=== PATIENT | male | born 1980 | race Caucasian/White ===

== ENCOUNTER 2018-06-13 22:24 | Emergency (ER) | payer SELFPAY ==
[~2018-06-13] VITALS: Ht 177.8 cm; Wt 83.9 kg
[2018-06-13 22:28] VITALS: BP 164/101
--- NOTE | 2018-06-13 22:28 | NUR ---
NOTIFIED NURSE VAIBHAV THAT PT STATED HE FELT LIKE HE IS HAVING A HEART ATTACK
[2018-06-13] MEDS ORDERED: ASPIRIN 81 MG CHEW (CHILDREN'S ASA) PO ONE (22:45)
--- NOTE | 2018-06-13 22:50 | NUR ---
pt given urinal informed urine specimen needed.
[2018-06-13 22:53] LABS: BASOPHILS % (AUTO) 1 % (0-10); EOSINOPHILS # (AUTO) 0.2 10^3/uL (0.0-0.3); EOSINOPHILS % (AUTO) 2 % (0-10); HEMATOCRIT 49 % (40-54); HEMOGLOBIN 17.6 G/DL (13.3-17.7); LYMPHOCYTES # (AUTO) 1.8 X 10^3 (1.0-4.0); LYMPHOCYTES % (AUTO) 20 % (12-44); MEAN CORPUSCULAR HEMOGLOBIN 31 PG (25-34); MEAN CORPUSCULAR HGB CONC 36 G/DL (32-36); MEAN CORPUSCULAR VOLUME 87 FL (80-99); MEAN PLATELET VOLUME 9.3 FL (7.4-10.4); MONOCYTES % (AUTO) 12 % (0-12); NEUTROPHILS # (AUTO) 5.9 X 10^3 (1.8-7.8); NEUTROPHILS % (AUTO) 66 % (42-75); PLATELET COUNT 335 10^3/uL (130-400); RED CELL DISTRIBUTION WIDTH 12.3 % (10.0-14.5); WHITE BLOOD COUNT 8.9 10^3/uL (4.3-11.0)
[2018-06-13 22:58] LABS: PROTHROMBIN TIME PATIENT 13.4 SEC (12.2-14.7)
[2018-06-13] MEDS ORDERED: KETOROLAC 30 MG/ML VIAL IVP ONE (23:00)
[2018-06-13] MEDS ORDERED: LIDOCAINE 2% VISCOUS 15 ML UDC PO ONE (23:00)
[2018-06-13] MEDS ORDERED: ANTACID SUSP 30 ML UDC (MYLANTA) PO ONE (23:00)
--- NOTE | 2018-06-13 23:03 | ED Chest Pain ---
General Chief Complaint: Chest Wall/Rib Pain Stated Complaint: CP Nursing Triage Note: left chest pain radiating to left shoulder/arm/abdomen x45 min. Nursing Sepsis Screen: No Definite Risk Source: patient History of Present Illness Date Seen by Provider: Jun 13, 2018 Time Seen by Provider: 22:40 Initial Comments PT ARRIVES VIA POV FROM HOME C/O LEFT CHEST PAIN, RADIATES TO LEFT SHOULDER, DOWN LEFT ARM, AND LEFT LATERAL NECK PAIN BEGAN 1 HOUR AGO WHILE DRINKING BEER STATES PAIN IS GETTING BETTER--PAIN WAS 8/10, NOW 5/10 NOTHING WORSENS OR IMPROVES PAIN LEFT ARM FEELS NUMB AND TINGLY STATES IT IS HARD TO TAKE A DEEP BREATH WHEN PAIN IS BAD + NAUSEA, NO VOMITING NO SWEATS NO SWELLING IN LEGS/ FEET OR PAIN IN CALVES. NO RECENT TRAVEL OR PROLONGED SITTING, ETC. NO SYNCOPE NO PALPITATIONS NO FEVER, COUGH/URI SYMPTOMS OR RECENT ILLNESS NO HISTORY OF SIMILAR NO INJURY OR UNUSUAL ACTIVITY PT IS RIGHT HANDED PCP:NONE Allergies and Home Medications Allergies Coded Allergies: No Known Drug Allergies (Unverified , 06/13/18) Home Medications No Active Prescriptions or Reported Meds Patient Home Medication List Home Medication List Reviewed: Yes Review of Systems Review of Systems Constitutional: no symptoms reported EENTM: No Symptoms Reported Respiratory: See HPI Cardiovascular: See HPI Gastrointestinal: See HPI; Denies Abdominal Pain; Nausea; Denies Vomiting Genitourinary: No Symptoms Reported Musculoskeletal: see HPI Skin: no symptoms reported Psychiatric/Neurological: See HPI Endocrine: No Symptoms Reported Hematologic/Lymphatic: No Symptoms Reported Past Svvrbef-Wblkoc-Pbdnpe Hx Patient Social History Alcohol Use: Regular Use (6 PACK A COUPLE OF TIMES / WEEK) Number of Drinks Today: 3 Alcohol Beverage of Choice: Beer Recreational Drug Use: Yes (THC) Drug of Choice: cannibus Smoking Status: Current Everyday Smoker (1 1/2 PPD) Type Used: Cigarettes (1 1/2 PPD) 2nd Hand Smoke Exposure: Yes Recent Foreign Travel: No Contact w/Someone Who Travel: No Recent Infectious Disease Expo: No Recent Hopitalizations: No Immunizations Up To Date Tetanus Booster (TDap): Unknown Seasonal Allergies Seasonal Allergies: No Past Medical History Surgeries: No Respiratory: No Cardiac: Yes ([facility] [facility]N[employer]--DX 2018 IN [place]--PT WAS PLACED ON BETABLOCKER , BUT DROPPED HIS HEART RATE, SO PT SELF DC'D. HAS NOT FOLLOWED UP WITH ANYONE SINCE. ) Neurological: No Genitourinary: No Gastrointestinal: No Musculoskeletal: Yes (LEFT HUMERUS FX CHILD--NO SURGERY) Endocrine: No HEENT: No Cancer: No Psychosocial: No Integumentary: No Blood Disorders: No Physical Exam Vital Signs Vital Signs - First Documented 06/13/18 22:28 Temp 97.3 Pulse 99 Resp 18 B/P (MAP) 164/101 (122) Pulse Ox 100 O2 Delivery Room Air Capillary Refill : Less Than 3 Seconds Height, Weight, BMI Height: 5'10.00" Weight: 185lbs. oz. 83.762431gc; BMI Method:Stated General Appearance: No Apparent Distress, WD/WN, Other (FLAT AFFECT. DOES NOT APPEAR TO BE IN ANY DISCOMFORT OR DISTRESS. REEKS OF CIGARETTES) Neck: Full Range of Motion, Normal Inspection, Non Tender, Supple; No Carotid Bruit, No JVD Respiratory: Chest Non Tender, Normal Breath Sounds, No Accessory Muscle Use Cardiovascular: Regular Rate, Rhythm, No Edema, No JVD, No Murmur, Normal Peripheral Pulses Gastrointestinal: Normal Bowel Sounds, No Organomegaly, No Pulsatile Mass, Non Tender, Soft Extremity: Normal Capillary Refill, Normal Inspection, Normal Range of Motion, Non Tender, No Calf Tenderness, No Pedal Edema Neurologic/Psychiatric: Alert, Oriented x3, No Motor/Sensory Deficits, Normal Mood/Affect, equity research analyst II-XII Norm as Tested Skin: Normal Color, Warm/Dry; No Rash Progress/Results/Core Measures Results/Orders Lab Results Laboratory Tests Test 06/13/18 20:35 Range/Units White Blood Count 8.9 4.3-11.0 10^3/uL Red Blood Count 5.64 4.35-5.85 10^6/uL Hemoglobin 17.6 13.3-17.7 G/DL Hematocrit 49 40-54 % Mean Corpuscular Volume 87 80-99 FL Mean Corpuscular Hemoglobin 31 25-34 PG Mean Corpuscular Hemoglobin Concent 36 32-36 G/DL Red Cell Distribution Width 12.3 10.0-14.5 % Platelet Count 335 130-400 10^3/uL Mean Platelet Volume 9.3 7.4-10.4 FL Neutrophils (%) (Auto) 66 42-75 % Lymphocytes (%) (Auto) 20 12-44 % Monocytes (%) (Auto) 12 0-12 % Eosinophils (%) (Auto) 2 0-10 % Basophils (%) (Auto) 1 0-10 % Neutrophils # (Auto) 5.9 1.8-7.8 X 10^3 Lymphocytes # (Auto) 1.8 1.0-4.0 X 10^3 Monocytes # (Auto) 1.0 0.0-1.0 X 10^3 Eosinophils # (Auto) 0.2 0.0-0.3 10^3/uL Basophils # (Auto) 0.0 0.0-0.1 10^3/uL Prothrombin Time 13.4 12.2-14.7 SEC INR Comment 1.0 0.8-1.4 Activated Partial Thromboplast Time 29 24-35 SEC Sodium Level 139 135-145 MMOL/L Potassium Level 3.6 3.6-5.0 MMOL/L Chloride Level 104 98-107 MMOL/L Carbon Dioxide Level 21 21-32 MMOL/L Anion Gap 14 5-14 MMOL/L Blood Urea Nitrogen 12 7-18 MG/DL Creatinine 1.02 0.60-1.30 MG/DL Estimat Glomerular Filtration Rate > 60 BUN/Creatinine Ratio 12 Glucose Level 98 70-105 MG/DL Calcium Level 10.0 8.5-10.1 MG/DL Corrected Calcium 8.5-10.1 MG/DL Magnesium Level 2.5 H 1.8-2.4 MG/DL Total Bilirubin 0.6 0.1-1.0 MG/DL Aspartate Amino Transf (AST/SGOT) 18 5-34 U/L Alanine Aminotransferase (ALT/SGPT) 22 0-55 U/L Alkaline Phosphatase 77 40-136 U/L Total Creatine Kinase 70 30-200 U/L Creatine Kinase MB 1.0 <6.6 NG/ML Myoglobin 21.5 10.0-92.0 NG/ML Troponin I < 0.028 <0.028 NG/ML B-Type Natriuretic Peptide < 10.0 <100.0 PG/ML Total Protein 7.6 6.4-8.2 GM/DL Albumin 5.0 H 3.2-4.5 GM/DL Amylase Level 37 25-125 U/L Lipase 32 8-78 U/L Serum Alcohol 10 <10 MG/DL My Orders Orders - DONITA FISHMAN DO Ua Culture If Indicated (06/13/18 22:41) Cbc With Automated Diff (06/13/18 22:45) Magnesium (06/13/18 22:45) Chest 1 View, Ap/Pa Only (06/13/18 22:45) Ekg Tracing (06/13/18 22:45) Cardiac Profile 1 (06/13/18 22:45) Comprehensive Metabolic Panel (06/13/18 22:45) Myoglobin Serum (06/13/18 22:45) Protime With Inr (06/13/18:45) Partial Thromboplastin Time (06/13/18 22:45) O2 (06/13/18 22:45) Monitor-Rhythm Ecg Trace Only (06/13/18 22:45) Aspirin Chewable Tablet (Baby Aspirin Ch (06/13/18 22:45) Saline Lock/Iv-Start (06/13/18 22:45) Creatine Kinase (06/13/18 22:45) Creatine Kinase Mb (06/13/18 22:45) Lipase (06/13/18 22:45) Amylase (06/13/18 22:45) BNP (06/13/18 22:45) Alcohol (06/13/18 22:45) Drug Screen Stat (Urine) (06/13/18 22:45) Ketorolac Injection (Toradol Injection) (06/13/18 23:00) Antacid Suspension (Mylanta Suspension (06/13/18 23:00) Lidocaine 2% Viscous 15 Ml (Xylocaine Vi (06/13/18 23:00) Ct Angio Chest W (06/13/18 23:37) Pantoprazole Injection (Protonix Injecti (06/13/18 23:45) Medications Given in ED Current Medications Medications Dose Ordered Sig/Massimo Route Start Time Stop Time Status Last Admin Dose Admin Al Hydrox/Mg Hydrox/Simethicone 30 ml ONCE ONCE PO 06/13/18 23:00 06/13/18 23:01 DC 06/13/18 23:04 30 ML Aspirin 324 mg ONCE ONCE PO 06/13/18 22:45 06/13/18 22:47 DC 06/13/18 22:52 324 MG Ketorolac Tromethamine 30 mg ONCE ONCE IVP 06/13/18 23:00 06/13/18 23:01 DC 06/13/18 23:04 30 MG Lidocaine HCl 15 ml ONCE ONCE PO 06/13/18 23:00 06/13/18 23:01 DC 06/13/18 23:04 15 ML Pantoprazole 40 mg ONCE ONCE IV 06/13/18 23:45 06/13/18 23:46 DC 06/13/18 23:45 40 MG Vital Signs/I&O 06/13/18 06/13/18 22:28 22:28 Temp 97.3 Pulse 99 Resp 18 B/P (MAP) 164/101 (122) Pulse Ox 100 100 O2 Delivery Room Air Room Air Blood Pressure Mean: 122 Progress Progress Note : Progress Note PT STATES PAIN IS BETTER WITH MEDICATIONS, BUT STILL HAS SOME TINGLING IN LEFT ARM AND DISCOMFORT IN LEFT LATERAL NECK AND SHOULDER AREA PT REFUSES TO GIVE URINE SPECIMEN 0030--WHILE I WAS ATTENDING TO A KATH STOCKTON, PT LEFT AGAINST MEDICAL ADVICE--CT RESULTS NOT BACK AT THIS TIME. Initial ECG Impression Date: Jun 13, 2018 Initial ECG Impression Time: 23:08 Initial ECG Rate: 83 Initial ECG Rhythm: Normal Sinus Initial ECG Comparisson: No Previous ECG Available Diagnostic Imaging Comments CXR--NO ACUTE PROCESS, PENDING RADIOLOGIST REVIEW CT CHEST ANGIOGRAM--NORMAL, NO P.E. PER [facility] VIA FAX @ [phone] Reviewed: Reviewed by Me Departure Impression Primary Impression: Left against medical advice Disposition: 07 AGAINST MEDICAL ADVICE Condition: Against Medical Advice Departure-Patient Inst. Referrals: NO,LOCAL PHYSICIAN (PCP/Family) Primary Care Physician Scripts No Active Prescriptions or Reported Meds DONITA FISHMAN DO Jun 13, 2018 23:03
[2018-06-13 23:09] LABS: ALANINE AMINOTRANSFERASE 22 U/L (0-55); ALKALINE PHOSPHATASE 77 U/L (40-136); AMYLASE 37 U/L (25-125); BILIRUBIN,TOTAL 0.6 MG/DL (0.1-1.0); BUN/CREATININE RATIO 12; CARBON DIOXIDE 21 MMOL/L (21-32); CHLORIDE 104 MMOL/L (98-107); CREATINE KINASE 70 U/L (30-200); CREATININE SERUM 1.02 MG/DL (0.60-1.30); GFR ESTIMATED > 60; GLUCOSE 98 MG/DL (70-105); LIPASE 32 U/L (8-78); MAGNESIUM 2.5 MG/DL (1.8-2.4); POTASSIUM 3.6 MMOL/L (3.6-5.0); SODIUM 139 MMOL/L (135-145); TOTAL PROTEIN 7.6 GM/DL (6.4-8.2)
[2018-06-13 23:16] LABS: MYOGLOBIN SERUM 21.5 NG/ML (10.0-92.0)
[2018-06-13] MEDS ORDERED: PANTOPRAZOLE 40 MG (PROTONIX) VIAL IV ONE (23:45)
--- NOTE | 2018-06-14 07:28 | Diagnostic Imaging Report ---
PROCEDURE: CT angiography of the chest with contrast. TECHNIQUE: Multiple contiguous axial images were obtained through the chest after uneventful bolus administration of intravenous contrast. 2D reconstructed CTA MIP acquisitions were also performed. INDICATION: Chest pain Lungs are clear. There are no effusions or pneumothoraces. There is no hilar or mediastinal lymphadenopathy. Aorta appears normal. There are no pulmonary emboli. IMPRESSION: Negative CTA chest. I agree with preliminary interpretation. Dictated by: Dictated on workstation # [id number]
--- NOTE | 2018-06-14 07:39 | Diagnostic Imaging Report ---
INDICATION: Shortness of breath, left-sided chest pain. Portable chest 10:58 p.m. FINDINGS: Heart and mediastinum are normal. Lungs are clear. There are no effusions or pneumothoraces. IMPRESSION: Negative chest. Dictated by: Dictated on workstation # [id number]
== END 2018-06-14 00:23 | disposition left against medical advice (07) ==
LOC: ER 22:26
DX: R07.89 Other chest pain (principal); M25.512 Pain in left shoulder; M54.2 Cervicalgia; M79.602 Pain in left arm; F12.10 Cannabis abuse, uncomplicated; F17.210 Nicotine dependence, cigarettes, uncomplicated
CPT/HCPCS: 36415; 71045; 71275; 80053; 80320; 82150; 82550; 82553; 83690; 83735; 83874; 83880; 84484; 85025; 85610; 85730; 93005; 93041; 96374; 96375